=== PATIENT | female | born 1965 | race Caucasian/White ===

== ENCOUNTER 2019-07-10 11:59 | Emergency (ER) | payer SELFPAY ==
[2019-07-10] MEDS ORDERED: Ketorolac INJ* 30 MG/ML 1 ML VIAL IM ONE (12:05)
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
[2019-07-10 14:58] VITALS: BP 126/98
== END 2019-07-10 14:57 | disposition home or self-care (01) ==
LOC: ED 11:59
DX: S80.12XA Contusion of left lower leg, initial encounter (principal); V03.10XA Pedestrian on foot injured in collision with car, pick-up truck or van in traffic accident, initial encounter; Y92.410 Unspecified street and highway as the place of occurrence of the external cause
CPT/HCPCS: 96372; 99282; J1885

== ENCOUNTER 2019-07-13 14:09 | Emergency (ER) | payer SELFPAY ==
[2019-07-13 14:24] VITALS: BP 155/93
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
== END 2019-07-13 15:20 | disposition home or self-care (01) ==
LOC: UCEAST 14:09
DX: S80.12XA Contusion of left lower leg, initial encounter (principal); S16.1XXA Strain of muscle, fascia and tendon at neck level, initial encounter; S29.012A Strain of muscle and tendon of back wall of thorax, initial encounter; W22.8XXA Striking against or struck by other objects, initial encounter; Y92.9 Unspecified place or not applicable
CPT/HCPCS: 99212; G0463